=== PATIENT | female | born 1940 | race Caucasian/White ===

== ENCOUNTER 2023-01-18 12:02 | Emergency (ER) | payer MEDICARE, SELFPAY ==
--- NOTE | ~2023-01-18 | XR_ITS ---
EXAMINATION: XR chest 2V 01/18/2023 12:34 INDICATION: Congestion and cough PROCEDURE: 2 view chest COMPARISON: No prior studies for comparison. FINDINGS: The lungs are clear. The cardiomediastinal silhouette is within normal limits. There are no pleural effusions. There is no pneumothorax suspected. There is dextroscoliosis. Moderate thorac ic spondylosis. IMPRESSION: 1: NO ACUTE CARDIOPULMONARY DISEASE. Reviewed, dictated and finalized at location []
--- NOTE | 2023-01-18 12:11 | ED.URI ---
HPI - URI/Sore Throat General Chief Complaint: Upper Respiratory Infection Stated Complaint: Upper respiratory cough sneeze Time Seen by Provider: 01/18/23 12:04 Source: patient Mode of arrival: ambulatory Limitations: no limitations History of Present Illness HPI Narrative: Hellen is an 82-year-old female patient presenting to the clinic today with complaints of nasal congestion, cough, and sneezing, and shortness of breath. She reports she became short of breath last night when she was laying flat had to prop herself with pillows. States she is having a productive cough and has felt feverish. He just returned home 3 days ago from a trip to [place]. MD elicited complaint: cough, nasal congestion and other (Sneezing) Related Data Home Medications Medication Instructions Recorded Confirmed apixaban 5 mg tablet (Eliquis) mg 01/18/23 metoprolol succinate 25 mg mg PO 01/18/23 tablet,extended release 24 hr rosuvastatin 40 mg tablet mg 01/18/23 rosuvastatin 40 mg tablet mg 01/18/23 Allergies Allergy/AdvReac Type Severity Reaction Status Date / Time No Known Allergies Allergy Verified 01/18/23 12:28 Review of Systems Review of Systems: Pertinent positives per HPI. Patient denies any fever, chills, rash, headache, visual changes, dizziness, cough, shortness of breath, chest pain, palpitations, nausea, vomiting, diarrhea, constipation, abdominal pain, or any urinary issues. [facility] Comments At the time of my signature, I reviewed and agree with the nursing past medical, surgical, social, and family history. There is no relevant family history pertinent to the patient complaint. Exam Narrative: General: Well-developed, overweight, in no apparent distress Head: Normocephalic, atraumatic Eyes: Pupils equally round and reactive to light bilaterally, EOM intact, sclera and conjunctive clear, no discharge, lids normal Ears: TMs intact and congested, ear canals clear, no drainage, grossly hearing normal. Nose: Nares patent, clear nasal discharge, no inflammation, no sinus tenderness. Mouth: Oral pharynx without lesions or masses, good dentition, MMM. PND Neck: Supple, trachea midline, no enlargement of anterior or posterior cervical nodes, no thyroid masses or goiter palpable. Cardio: Regular rate and rhythm, s1 and s2 normal, no murmur appreciated. Resp: Inspiratory crackles heard over the left lower lung field, no rhonchi,wheezing, or rubs Course Course Emergency Course: Portions of this record may have been created with voice recognition software. Level of Care: Express Care Visit Vital Signs Vital signs: Vital signs reviewed MDM - URI/Sore Throat MDM Narrative Medical decision making narrative: At the time of visit patient is resting comfortably on the exam table. X-ray of the chest was performed and was negative for any sign pneumonia. I suspect patient has bronchitis. Prescription for albuterol inhaler and prednisone was sent to pharmacy. Supportive measures were discussed with the patient and she voiced understanding of the discharge instructions and agrees to treatment plan. Differential Diagnosis Differential diagnosis: Likely upper respiratory infection, otitis media, sinusitis, viral infection, bronchitis, influenza, pharyngitis and other (COVID) Imaging Data Radiologist's impression: [facility] [place] [id number] [facility] [place] [address] XRay Report Signed Patient: Hellen Orozco : 1940 MR#: [id number] Age/Sex: 82 / F Acct:[id number] Loc: [facility]? ? ADM Date: 01/18/23Attending Dr: Ordering Physician: Santosh Mosqueda APRN Date of Service: 01/18/23 Procedure(s): XR chest 2V Accession Number(s): [id number] cc: Santosh Mosqueda APRN~ EXAMINATION: XR chest 2V 01/18/2023 12:34 INDICATION: Congestion and cough PROCEDURE:? 2 view chest COMPARISON: No prior studies for comparison. FINDINGS:
[2023-01-18 12:16] VITALS: BP 126/65; PULSE 83; RESP 16; TEMP 36.7; O2SAT 99
[2023-01-18 12:30] VITALS: BP 126/65; PULSE 83; RESP 16; TEMP 36.7; O2SAT 99
== END 2023-01-18 12:56 | disposition home or self-care (01) ==
PROVIDERS: Emergency Provider Nurse Practitioner Family
DX: J40 Bronchitis, not specified as acute or chronic (principal)
CPT/HCPCS: 71046; 99213; G0463